=== PATIENT | female | born 1985 | race Caucasian/White ===

== ENCOUNTER 2020-09-01 16:52 | Inpatient (IN) | payer OTHER ==
[~2020-09-01] VITALS: Ht 170.2 cm; Wt 66.8 kg
[~2020-09-01 16:52] MED LIST: HYDACE5 PO; IBUP200; OXYACE5T PO
[2020-09-01 17:22] LABS: BASOPHILS ABSOLUTE AUTO 0.01 K/mm3 (0.00-0.23); BASOPHILS PERCENT AUTO 0 % (0-2); EOSINOPHILS PERCENT AUTO 0 % (0-6); Hematocrit 38.5 % (33.0-51.0); Hemoglobin 12.5 g/dL (11.5-16.0); IMMATURE GRAN ABSOLUTE AUTO 0.05 K/mm3 (0.00-0.10); IMMATURE GRAN PERCENT AUTO 0 % (0-1); LYMPHOCYTES ABSOLUTE AUTO 0.58 K/mm3 (0.84-5.20); LYMPHOCYTES PERCENT AUTO 4 % (21-46); MONOCYTES ABSOLUTE AUTO 0.24 K/mm3 (0.16-1.47); MONOCYTES PERCENT AUTO 2 % (4-13); Mean Corpuscular HGB 28.8 pg (26.0-34.0); Mean Corpuscular HGB Conc 32.5 g/dL (31.5-36.5); Mean Corpuscular Volume 89 fL (80-100); Mean Platelet Volume 10.1 fL (9.1-12.4); NEUTROPHILS ABSOLUTE AUTO 13.37 K/mm3 (1.96-9.15); NEUTROPHILS PERCENT AUTO 94 % (41-73); Platelet Count 328 K/mm3 (150-400); RDW Coefficient Variation 13.2 % (11.7-14.2); RDW Standard Deviation 43.6 fL (35.1-46.3); Red Blood Cell Count 4.34 M/mm3 (3.80-5.20); White Blood Cell Count 14.25 K/mm3 (4.00-11.30)
[2020-09-01 17:40] LABS: Alanine Aminotransfer (ALT/SGP 15 U/L (12-78); Albumin, Blood 3.1 g/dL (3.4-5.0); Albumin/Globulin Ratio 0.7 (0.8-1.8); Alk Phos 69 U/L (50-136); Anion Gap 12 mmol/L (6-16); Aspartate Aminotrans (AST/SGOT 7 U/L (12-37); Bilirubin, Total 0.2 mg/dL (0.1-1.0); Blood Urea Nitrogen 9 mg/dL (8-24); CO2, Blood 22 mmol/L (21-32); Calcium, Blood 8.7 mg/dL (8.5-10.1); Chloride, Blood 107 mmol/L (98-108); Creatinine, Blood 0.56 mg/dL (0.40-1.00); Globulin, Blood 4.4 g/dL (2.2-4.0); Glomerular Filtration Rate >60 (60-); Glucose, Blood 200 mg/dL (70-99); Potassium, Blood 3.9 mmol/L (3.5-5.5); Sodium, Blood 141 mmol/L (136-145); Total Protein, Blood 7.5 g/dL (6.4-8.2)
[2020-09-01 18:59] LABS: Source, Urine Clean Catch
[2020-09-01 19:03] LABS: Appearance, Urine Clear (Clear); Bilirubin, Urine Neg (Neg); Blood, Urine 2+ (Neg); Color, Urine Yellow (P-Yellow); Glucose Qualitative, Urine 4+ (Neg); Ketones, Urine 1+ (Neg); Leukocyte Esterase, Urine Neg (Neg); Nitrite, Urine Neg (Neg); Protein, Urine Neg (Neg); Specific Gravity, Urine 1.015 (1.003-1.022); Urobilinogen, Urine NORM (Normal)
[2020-09-01] MEDS ORDERED: ESCI20 PO (19:29)
[2020-09-01 19:32] LABS: Bacteria Few /hpf; Squamous Epithelial Cells Few /hpf (Few)
[2020-09-01] MEDS ORDERED: SULTRIDS PO (19:32)
[2020-09-01] MEDS ORDERED: PRED20 PO (19:32)
[2020-09-01] MEDS ORDERED: TRAZ50 PO (21:15)
[2020-09-01] MEDS ORDERED: JUNEL FE PO (21:16)
[2020-09-01] MEDS ORDERED: MIRALAX17 GM PO (21:56)
--- NOTE | 2020-09-01 22:55 | NUR ---
2150 PT ARRIVED TO ROOM FROM ER VIA GURNEY IN STABLE CONDITION. PT REPORTS BI LAT FLANK PAIN THAT IS SHARP AND DEEP, L IS 2/10, R IS 1/10. PT REPORTS SLIGHT NAUSEA, IS GOING TO ATTEMPT TO EAT SOME FOOD. PT REPORTS CONSITIPATION, NO BM SINCE 08/24/20, TOOK MIRALAX THIS AM. WILL GET BOWEL CARE ORDERED. NO OTHER APPARENT SIGNS OF DISTRESS. CALL LIGHT IS IN REACH. 2250 TELE IS NSR WITH PAC'S AT 79 PER PCU DATA QUALITY CONSULTANT.
--- NOTE | 2020-09-02 01:31 | NUR ---
0000 PT LYING IN BED, EYES CLOSED, APPEARS TO BE RESTING. BREATHING IS EVEN, UNLABORED. NO APPARENT SIGNS OF DISTRESS. CALL LIGHT IS IN REACH.
--- NOTE | 2020-09-02 01:31 | NUR ---
115 PT ASSISTED TO BATHROOM, NO APPARENT SIGNS OF DISTRESS. CALL CORD IN REACH.
--- NOTE | 2020-09-02 03:49 | NUR ---
PT LYING IN BED, EYES CLOSED, APPEARS TO BE RESTING. BREATHING IS EVEN, UNLABORED. NO APPARENT SIGNS OF DISTRESS. CALL LIGHT IS IN REACH.
--- NOTE | 2020-09-02 03:50 | NUR ---
PT IS AAO X 4, ON RA. REPORTS PAIN OF 1-2/10 IN BILAT FLANKS, SLIGHT NAUSEA. TELE NSR WITH PAC'S.
[2020-09-02 05:15] LABS: BASOPHILS ABSOLUTE AUTO 0.03 K/mm3 (0.00-0.23); BASOPHILS PERCENT AUTO 0 % (0-2); EOSINOPHILS ABSOLUTE AUTO 0.02 K/mm3 (0.00-0.68); EOSINOPHILS PERCENT AUTO 0 % (0-6); Hemoglobin 10.8 g/dL (11.5-16.0); IMMATURE GRAN ABSOLUTE AUTO 0.05 K/mm3 (0.00-0.10); IMMATURE GRAN PERCENT AUTO 0 % (0-1); LYMPHOCYTES ABSOLUTE AUTO 1.88 K/mm3 (0.84-5.20); LYMPHOCYTES PERCENT AUTO 15 % (21-46); MONOCYTES ABSOLUTE AUTO 0.89 K/mm3 (0.16-1.47); MONOCYTES PERCENT AUTO 7 % (4-13); Mean Corpuscular HGB 28.9 pg (26.0-34.0); Mean Corpuscular HGB Conc 32.7 g/dL (31.5-36.5); Mean Corpuscular Volume 88 fL (80-100); Mean Platelet Volume 10.6 fL (9.1-12.4); NEUTROPHILS ABSOLUTE AUTO 9.93 K/mm3 (1.96-9.15); NEUTROPHILS PERCENT AUTO 78 % (41-73); Platelet Count 300 K/mm3 (150-400); RDW Coefficient Variation 13.3 % (11.7-14.2); RDW Standard Deviation 43.3 fL (35.1-46.3); Red Blood Cell Count 3.74 M/mm3 (3.80-5.20)
[2020-09-02 06:11] LABS: Anion Gap 6 mmol/L (6-16); Blood Urea Nitrogen 6 mg/dL (8-24); Bun/Creatinine Ratio 9.1 (12.0-20.0); CO2, Blood 22 mmol/L (21-32); Calcium, Blood 7.8 mg/dL (8.5-10.1); Chloride, Blood 114 mmol/L (98-108); Creatinine, Blood 0.66 mg/dL (0.40-1.00); Glomerular Filtration Rate >60 (60-); Glucose, Blood 108 mg/dL (70-99); Sodium, Blood 142 mmol/L (136-145)
--- NOTE | 2020-09-02 06:12 | NUR ---
PT LYING IN BED, EYES CLOSED, APPEARS TO BE RESTING. BREATHING IS EVEN, UNLABORED. NO APPARENT SIGNS OF DISTRESS. CALL LIGHT IS IN REACH. NO OTHER CHANGES THIS SHIFT.
--- NOTE | 2020-09-02 15:37 | NUR ---
SUMMARY PT IS A/O X4, PLEASANT/COOPERATIVE. UP INDEPENDANT IN ROOM. DX SEPSIS, SHE WAS RECENTLY TX'D IN [facility] FOR UTI, THEY CALLED TO INFORM HER OF +BLOOD CX & SENT HER TO [facility] FOR TX. HER INITIAL LACTIC ACID CH 4 HAS IMPROVED, DR RIVAS RECHECKED THIS AFTERNOON WNL @ 1.3. PT TOLD DR SHE WAS HAVING SOME CHEST PRESSURE. DR ORDER D-DIMER & CXR WHICH ARE NEGATIVE. IS AWAITING SENSITIVITIES TO DETERMINE CORRECT ANTIBX TX THEN PT MAY D/C HOME, POSSIBLY IN AM. FOR NOW IV NS CONTINUES @ 100 ML/HR, IV ANTIBX ROCEPHIN DAILY. VSS/AFEBRILE.
--- NOTE | 2020-09-02 20:49 | NUR ---
1951 PT LYING IN BED, REPORTS PAIN IN L FLANK OF 3/10, DECLINES MEDS FOR IT AT THIS TIME. REPORTS SLIGHT SOB, ON RA AT 98%. TELE NSR AT 68. DENIES NEED FOR ANYTHING AT THIS TIME. NO APPARENT SIGNS OF DISTRESS. CALL LIGHT IS IN REACH.
--- NOTE | 2020-09-02 23:19 | NUR ---
TELE MANAGER SCHEDULING CALLED ABOUT 2300 TO REPORT PT WAS BRADYING DOWN TO LOW 50'S HIGH 40'S, PT CURRENTLY APPEARS TO BE SLEEPING. 2319 TELE IS NOW READING IN 50'S. PT LYING IN BED, EYES CLOSED, APPEARS TO BE RESTING. BREATHING IS EVEN, UNLABORED. NO APPARENT SIGNS OF DISTRESS. CALL LIGHT IS IN REACH.
--- NOTE | 2020-09-03 02:33 | NUR ---
PT LYING IN BED, EYES CLOSED, APPEARS TO BE RESTING. BREATHING IS EVEN, UNLABORED. NO APPARENT SIGNS OF DISTRESS. CALL LIGHT IS IN REACH.
--- NOTE | 2020-09-03 03:56 | NUR ---
PT UP USING BATHROOM AND BACK TO BED AGAIN. PT'S TELE NSR AT 101 PER TELE CANDY DEPARTMENT MANAGER. PT REPORTS PAIN IN L FLANK 2/10, DECLINES MEDS AT THIS TIME. DENIES NEED FOR ANYTHING ELSE AT THIS TIME. NO APPARENT SIGNS OF DISTRESS. CALL LIGHT IS IN REACH.
--- NOTE | 2020-09-03 03:57 | NUR ---
PT IS AAO X 4, ON RA. REPORTS PAIN IN L FLANK, DECLINED MEDS. REPORTS A LITTLE SOB, O2 IS 98%. TELE NSR AT 68-101, BUT WHILE SHE WAS ASLEEP IT DROPPED TO THE 50'S. WILL REPORT THIS TO DAY RN SO THEY CAN SPEAK WITH DAY HOSPITALIST ABOUT FOLLOWING UP ON THIS.
[2020-09-03] MEDS ORDERED: VISBIOME 112.51 EACH PO (18:02)
--- NOTE | 2020-09-03 18:12 | NUR ---
DISCHARGE PT DISCHARGED TODAY AFTER BLOOD CULTURES FROM [facility] WERE REVIEWED. PT EDUCATED ON NEW MED & FOLLOW UP INSTRUCTIONS. PT DENIES FURTHER NEED FOR INSTRUCTION AT THIS TIME. HOME MEDS RETURNED. PT REFUSED WHEELCHAIR RIDE OUT OF FACILITY. PT AMBULATED OFF OF FLOOR. BELONGINGS IN HAND.
== END 2020-09-03 18:11 | disposition home or self-care (01) | DRG 871 ==
LOC: ER 16:52 → MEDS 16:53
PROVIDERS: Emergency Medicine; Physician Assistant; ADMIT Internal Medicine
DX: A41.51 Sepsis due to Escherichia coli [E. coli] (principal); R65.21 Severe sepsis with septic shock; E87.2 Acidosis; N12 Tubulo-interstitial nephritis, not specified as acute or chronic; F41.9 Anxiety disorder, unspecified; F32.9 Major depressive disorder, single episode, unspecified; R07.9 Chest pain, unspecified
CPT/HCPCS: 36415; 71046; 80048; 80053; 81001; 83605; 85025; 85379; 87040; 96365; 96366; 96372; 99284-25; A9270; G0378; J0696; J1650; J7030; J7512